=== PATIENT | male | born 1990 | race Caucasian/White ===

== ENCOUNTER 2023-04-07 17:11 | Inpatient (IN) | payer SELFPAY ==
[2023-04-07 17:19] VITALS: BMI 23.7
[2023-04-07] MEDS ORDERED: SODIUM CHLORIDE 0.9% 500 ML INFUS.BAG IV ONE (18:45)
[2023-04-07 20:19] LABS: BASO % 0.7 % (0-2.0); EOS % 1.2 % (0-4.5); HEMATOCRIT 35.3 % (35.4-49); HEMOGLOBIN 11.5 GM/dL (11.7-16.9); LYMPH % 15.7 % (8-40); MCH 27.7 pg (25.7-33.7); MCHC 32.6 g/dl (32.0-35.9); MEAN PLT VOLUME 7.7 fl (7.5-11.1); MONO % 8.2 % (3.8-10.2); NEUT % 74.2 % (42.8-82.8); PLATELET COUNT 467 10^3/uL (134-434); RBC 4.15 M/mm3 (4.00-5.60); WHITE BLOOD COUNT 13.4 K/mm3 (4.0-10.0)
[2023-04-07 20:31] LABS: CHLORIDE 104 mmol/L (98-107); SODIUM 138 mmol/L (136-145)
[2023-04-07 20:33] LABS: CALCIUM 8.8 mg/dL (8.5-10.1)
[2023-04-07 20:35] LABS: ALBUMIN 2.8 g/dl (3.4-5.0); BLOOD UREA NITROGEN 11.9 mg/dL (7-18); CO2 26 mmol/L (21-32); GLUCOSE,RANDOM 92 mg/dL (74-106); MAGNESIUM 1.8 mg/dL (1.8-2.4)
[2023-04-07 20:37] LABS: CREATININE 0.7 mg/dL (0.55-1.3); PHOSPHOROUS 3.1 mg/dL (2.5-4.9); SGOT/AST 94 U/L (15-37); SGPT/ALT 75 U/L (13-61)
[2023-04-07 20:47] LABS: ALK PHOS 91 U/L (45-117); ANION GAP 7 MMOL/L (8-16); BILIRUBIN,TOTAL 0.7 mg/dL (0.2-1); POTASSIUM 6.4 mmol/L (3.5-5.1); TOT PROT 7.2 g/dl (6.4-8.2)
[2023-04-07] MEDS ORDERED: SODIUM CHLORIDE 1,000 ML IV STA (22:01)
[2023-04-07 23:54] LABS: POTASSIUM 3.7 mmol/L (3.5-5.1)
[2023-04-07 23:56] LABS: CALCIUM 8.8 mg/dL (8.5-10.1)
[2023-04-07 23:58] LABS: ALBUMIN 2.7 g/dl (3.4-5.0); BLOOD UREA NITROGEN 10.2 mg/dL (7-18)
[2023-04-08 00:01] LABS: BILIRUBIN,TOTAL 0.6 mg/dL (0.2-1); CREATININE 0.6 mg/dL (0.55-1.3)
[2023-04-08 00:02] LABS: TOT PROT 6.7 g/dl (6.4-8.2)
[2023-04-08 02:07] LABS: URINE APPEARANCE CLEAR; URINE BILIRUBIN NEGATIVE (NEGATIVE); URINE COLOR YELLOW; URINE GLUCOSE (UA) NEGATIVE (NEGATIVE); URINE KETONE NEGATIVE (NEGATIVE); URINE LEUK ESTERASE NEGATIVE (NEGATIVE); URINE NITRITE NEGATIVE (NEGATIVE); URINE PROTEIN NEGATIVE (NEGATIVE); URINE UROBILINOGEN 0.2 mg/dL (0.2-1.0)
[2023-04-08 03:19] LABS: COCAINE, UR NEGATIVE (NEGATIVE); METHADONE, UR NEGATIVE (NEGATIVE); OPIATES, URI NEGATIVE (NEGATIVE); PHENCYCLIDINE,URINE NEGATIVE (NEGATIVE); URINE AMPHETAMINES NEGATIVE (NEGATIVE); URINE BARBITURATES NEGATIVE (NEGATIVE); URINE BENZODIAZEPINES NEGATIVE (NEGATIVE)
[2023-04-08 05:30] LABS: ERYTHROCYTE SEDIMENTATION RATE 38 mm/hr (0-10)
[2023-04-08 07:35] LABS: HEMATOCRIT 31.1 % (35.4-49); HEMOGLOBIN 10.6 GM/dL (11.7-16.9); MCH 28.5 pg (25.7-33.7); MCHC 34.1 g/dl (32.0-35.9); MEAN CELL VOLUME 83.7 fl (80-96); MEAN PLT VOLUME 7.3 fl (7.5-11.1); PLATELET COUNT 445 10^3/uL (134-434); RBC 3.72 M/mm3 (4.00-5.60); RDW 13.5 % (11.9-15.9); WHITE BLOOD COUNT 9.4 K/mm3 (4.0-10.0)
[2023-04-08 07:51] LABS: BLOOD UREA NITROGEN 11.3 mg/dL (7-18); CALCIUM 8.5 mg/dL (8.5-10.1)
[2023-04-08 07:52] LABS: ALBUMIN 2.4 g/dl (3.4-5.0); MAGNESIUM 1.8 mg/dL (1.8-2.4)
[2023-04-08 07:54] LABS: CREATININE 0.7 mg/dL (0.55-1.3); PHOSPHOROUS 3.6 mg/dL (2.5-4.9)
[2023-04-08 07:56] LABS: BILIRUBIN,TOTAL 0.4 mg/dL (0.2-1); TOT PROT 5.8 g/dl (6.4-8.2)
[2023-04-08] MEDS ORDERED: SODIUM CHLORIDE 1,000 ML IV SCH (19:30)
[2023-04-09 08:47] LABS: EOS % 2.1 % (0-4.5); HEMATOCRIT 32.1 % (35.4-49); HEMOGLOBIN 10.7 GM/dL (11.7-16.9); LYMPH % 31.2 % (8-40); MCH 28.1 pg (25.7-33.7); MCHC 33.4 g/dl (32.0-35.9); MEAN CELL VOLUME 84.2 fl (80-96); MEAN PLT VOLUME 7.3 fl (7.5-11.1); MONO % 10.6 % (3.8-10.2); NEUT % 55.1 % (42.8-82.8); PLATELET COUNT 481 10^3/uL (134-434); RBC 3.81 M/mm3 (4.00-5.60); RDW 13.8 % (11.9-15.9); WHITE BLOOD COUNT 7.5 K/mm3 (4.0-10.0)
[2023-04-09 09:07] LABS: CHLORIDE 107 mmol/L (98-107); POTASSIUM 4.3 mmol/L (3.5-5.1); SODIUM 141 mmol/L (136-145)
[2023-04-09 09:12] LABS: CALCIUM 8.7 mg/dL (8.5-10.1)
[2023-04-09 09:13] LABS: ALBUMIN 2.4 g/dl (3.4-5.0); ANION GAP 7 MMOL/L (8-16); BLOOD UREA NITROGEN 12.1 mg/dL (7-18); CO2 26 mmol/L (21-32); GLUCOSE,RANDOM 90 mg/dL (74-106)
[2023-04-09 09:14] LABS: CREATININE 0.6 mg/dL (0.55-1.3)
[2023-04-09 09:16] LABS: BILIRUBIN,TOTAL 0.4 mg/dL (0.2-1); SGOT/AST 59 U/L (15-37); SGPT/ALT 80 U/L (13-61); TOT PROT 5.8 g/dl (6.4-8.2)
[2023-04-09 09:17] LABS: ALK PHOS 69 U/L (45-117)
[2023-04-09 12:25] LABS: HIV INTERPRETATION NEGATIVE (NEGATIVE)
[2023-04-10 10:28] VITALS: PULSE 76; RESP 20; TEMP 98.5
[2023-04-10 16:02] VITALS: BP 120/56
== END 2023-04-10 16:11 | disposition left against medical advice (07) | DRG 351 ==
LOC: JER 17:11 → JERBED 23:03 → INTOOBSV 23:03 → J8W 04-08 03:24 → OBSVTOIN 04-10 12:03
PROVIDERS: ADMIT Internal Medicine; ATTEND Nurse Practitioner Family
DX: M62.82 Rhabdomyolysis (principal); M60.08 Infective myositis, other site; F12.90 Cannabis use, unspecified, uncomplicated; R29.6 Repeated falls; R26.81 Unsteadiness on feet
CPT/HCPCS: 36415; 70450-TC; 71045-TC-FY; 72100-TC-FY; 72131-TC; 80053; 80307; 81003; 82550; 82553; 83735; 84100; 84132; 85025; 85027; 85651; 86140; 86780; 87389; 93005; 93010; 97116-GP; 97161-GP; 99285-25; G0378